=== PATIENT | male | born 1985 | race Caucasian/White ===

== ENCOUNTER 2016-05-12 17:30 | Emergency (ER) | payer OTHER ==
[~2016-05-12] VITALS: Ht 181.6 cm; Wt 114.1 kg
[2016-05-12 17:51] VITALS: BP 145/98; PULSE 108; RESP 20; O2SAT 95
[2016-05-12 18:43] LABS: BASOPHILS % (AUTO) 0.9 % (0-3); EOSINOPHILS % (AUTO) 0.7 % (0-5); MONOCYTES % (AUTO) 13.7 % (4-12); Mean Corpuscular Hemoglobin 28.8 pg (27.0-35.0); Mean Corpuscular Volume 82.6 fL (81-100); NEUTROPHILS % (AUTO) 70.5 % (40-74); Platelet Count 292 bil/L (150-400)
--- NOTE | 2016-05-12 19:15 | DRSVH ---
PROCEDURE: X-RAY CHEST, TWO VIEWS ([id number]) INDICATIONS: 30 year-old male with cough and persistent fevers. TECHNIQUE: 2 views of the chest were acquired. COMPARISON: None. FINDINGS: Surgical changes and devices: None. Lungs and pleura: No pleural effusions or pneumothorax. There is left lower lobe air space opacities , containing internal air bronchograms. Right lung is clear. Mediastinum: Mediastinal contours are normal. Heart size is normal. Bones and chest wall: No suspicious bony abnormalities. Soft tissues appear unremarkable. IMPRESSION: Left lower lobe pneumonia. Dictated by: Shay Nieves M.D. on 05/12/2016 at 19:13 Approved by: Shay Nieves M.D. on 05/12/2016 at 19:14
[2016-05-12] MEDS ORDERED: Ondansetron 2 mg/mL 2 mL Inj ONE (19:22)
--- NOTE | 2016-05-12 21:21 | ED.REPORT ---
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 He was seen at the urgent care 2 days ago and was clinically diagnosed with the flu despite a negative rapid flu, and was given Tamiflu at that time. Since that visit he states that his symptoms have been getting worse rather than better. He states that he has lost about 10 lbs and is beginning to feel very weak. He estimates he has slept 12 hours in the previous 4 days and has had little PO intake in that interim. Nursing Notes Stated Complaint: FEVER, HEADACHE, UNABLE TO SLEEP MORE THAN 2 HRS Chief Complaint: FLU/Cold Symptoms Nursing Notes Reviewed: Yes Allergies: Coded Allergies: Penicillins (Verified Allergy, Intermediate, rash, 05/12/16) Scheduled Azithromycin (Azithromycin) 500 Mg Tablet 500 MG PO DAILY Cefuroxime Axetil (Cefuroxime) 500 Mg Tablet 500 MG PO BID Scheduled PRN Ondansetron ODT (Zofran ODT) 4 Mg Tablet 4 MG PO Q4H PRN PRN For Nausea General Time Seen by MD: 21:05 Chief Complaint Not feeling well Hx Obtained From: Patient Onset Occurred: 1 week ago Symptom Duration: Since onset Review of Systems Full Review of Systems Constitutional: Reports: Chills, Fatigue, Fever, Weakness - generalized GI: Reports: Anorexia, Diarrhea, Nausea Psychiatric: Reports: Insomnia Complete sys rev & neg: except as marked. Physical Exam Gen: A/O x3 pleasant cooperative ill appearing male in mild acute distress Neck: Supple, non tender, no lymphadenopathy HEENT: PERRL, EOMI, mucous membranes slightly dry CV: RRR, no murmurs rubs or gallops Resp: crackles in left lung base, diffuse expiratory wheezing Abdomen: Soft, mildly tender in epigastric region Neuro: CN 2-12 grossly intact, no focal neurologic deficit. Vital Signs Vital Signs Date Time Temp Pulse Resp B/P Pulse Ox O2 Delivery O2 Flow Rate FiO2 05/12/16 23:36 37.3 93 20 134/84 95 Room Air 05/12/16 21:01 36.8 05/12/16 17:51 38.4 108 20 145/98 95 Room Air Interpretation & Diagnostics Lab Results Interpretation Result Diagram: 05/12/16 1831 05/12/16 1831 Test 05/12/16 18:31 White Blood Count 6.9th/mm3 (3.8-10.1) Red Blood Count 5.46mil/mm3 (4.40-5.80) Hemoglobin 15.7g/dL (13.8-17.2) Hematocrit 45.1% (41.0-50.0) Mean Corpuscular Volume 82.6fL (81-100) Mean Corpuscular Hemoglobin 28.8pg (27.0-35.0) Mean Corpuscular Hemoglobin Concent 34.8% (32.0-37.0) Red Cell Distribution Width 14.3% (12.3-15.4) Platelet Count 292bil/L (150-400) Neutrophils (%) (Auto) 70.5% (40-74) Lymphocytes (%) (Auto) 13.8% (14-46) Monocytes (%) (Auto) 13.7% (4-12) Eosinophils (%) (Auto) 0.7% (0-5) Basophils (%) (Auto) 0.9% (0-3) Sodium Level 136mEq/L (134-144) Potassium Level 4.0mEq/L (3.5-5.2) Chloride Level 97mEq/L (97-108) Carbon Dioxide Level 22mmol/L (18-29) Blood Urea Nitrogen 14mg/dL (6-20) Creatinine 0.98mg/dL (0.76-1.27) Estimat Glomerular Filtration Rate 95mL/min (>59) Glucose Level 118mg/dL (60-99) Lactic Acid Level 1.2mmol/L (0.4-2.0) Calcium Level 9.3mg/dL (8.5-10.1) Total Bilirubin 0.6mg/dL (0.0-1.2) Aspartate Amino Transf (AST/SGOT) 40U/L (0-50) Alanine Aminotransferase (ALT/SGPT) 47U/L (0-44) Alkaline Phosphatase 70U/L (25-150) Total Protein 8.0g/dL (6.4-8.4) Albumin 3.9g/dL (3.4-5.0) Re-Eval/Medical Decision Med Decision/Clinical Course 30-year-old man with flulike illness over the past week presents with persistent cough, fever, and tachycardia. X-ray reveals left lower lobe infiltrate. He was begun with Rocephin here and azithromycin, with Ceftin and azithromycin to follow. Tachycardia is improved to a normal rate after IV fluids. He is discharged in stable and improved condition. Discharge & Departure Shift Change Sign-Out Patient Care Transferred: No Laboratory Evaluation: Lab evaluation discussed Imaging Studies: Imaging discussed Response to Therapy: Improved Primary Impression: Pneumonia Pneumonia type: due to unspecified organism Laterality: left Lung location : lower lobe of lung Qualified Code: J18.9 - Pneumonia, unspecified organism Additional Impressions: Dehydration Tachycardia Disposition: Home Discharge Condition All VS Reviewed: Yes Condition: Improved Patient Instructions: Community-acquired Pneumonia (DC) Additional Instructions: It looks like you are suffering from pneumonia based upon your x ray and symptoms. We will prescribe you Cefuroxime and Azithromycin for antibiotic coverage, as well as Zofran for nausea. You received Ceftriaxone and 2L of saline here in the ED. If your conditions worsens or fails to improve in the next 4-5 days you should contact your PCP or present to urgent care or the ED for further evaluation. As you know rest, fluids, and isolation from your tiny baby are important at this time. Referrals: Lanette Vo PA-C (PCP) Attending Statement As attending of record for this patient, I conducted an independent history and physical exam, and concur with the resident documentation as above, and as amended. copies to: Lanette Vo PA-C, David E DO May 12, 2016 21:21 Manish Fernández MD May 13, 2016 07:28
[2016-05-12] MEDS ORDERED: 0.9% Sodium Chloride 1,000 ML IV ONE (21:55)
[2016-05-12] MEDS ORDERED: cefTRIAXone Inj 1,000 MG in Dextrose 5% Minibag Plus 50 ML IV ONE (21:55)
[2016-05-12] MEDS ORDERED: CEFU500T61 PO (22:02)
[2016-05-12] MEDS ORDERED: AZIT500T5 PO (22:02)
[2016-05-12] MEDS ORDERED: ONDA4TAB9 PO (22:47)
[2016-05-12 23:36] VITALS: BP 134/84; PULSE 93; RESP 20; O2SAT 95
== END 2016-05-12 23:23 | disposition home or self-care (01) ==
LOC: SED 17:30
DX: J18.9 Pneumonia, unspecified organism (principal); E86.0 Dehydration; R00.0 Tachycardia, unspecified; Z88.0 Allergy status to penicillin
CPT/HCPCS: 36415; 71020; 80053; 83605; 85025; 87040; 96361; 96365; 96375; 99285; J0696; J2405; J7030